=== PATIENT | male | born 1990 | race Caucasian/White ===

== ENCOUNTER 2016-09-21 00:16 | Emergency (ER) | payer OTHER ==
[~2016-09-21] VITALS: Ht 172.7 cm; Wt 100.0 kg
[2016-09-21 00:35] VITALS: BP 189/98; PULSE 89; RESP 18; TEMP 98.5; O2SAT 100
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
== END 2016-09-21 01:28 | disposition home or self-care (01) ==
LOC: NEPB 00:16
DX: S05.92XA Unspecified injury of left eye and orbit, initial encounter (principal); S05.91XA Unspecified injury of right eye and orbit, initial encounter; Z77.098 Contact with and (suspected) exposure to other hazardous, chiefly nonmedicinal, chemicals; X58.XXXA Exposure to other specified factors, initial encounter; Y93.89 Activity, other specified; Y99.0 Civilian activity done for income or pay
CPT/HCPCS: 99282